=== PATIENT | male | born 1995 | race African-American/Black ===

== ENCOUNTER 2017-01-25 08:02 | Emergency (ER) | payer MEDICAID ==
[~2017-01-25] VITALS: Ht 172.7 cm; Wt 59.0 kg
[2017-01-25 08:02] VITALS: BP_SYST 129
[2017-01-25 08:50] LABS: BASOPHILS % (AUTO) 0.5 % (0.0-2.0); EOSINOPHILS # (AUTO) 0.1 K/uL (0.0-0.4); EOSINOPHILS % (AUTO) 0.7 % (0.0-4.0); HEMATOCRIT 43.7 % (36-54); HEMOGLOBIN 14.4 g/dL (14.0-18.0); LYMPHOCYTES # (AUTO) 1.6 K/uL (1.0-5.5); LYMPHOCYTES % (AUTO) 16.3 % (20.5-51.5); MEAN CORPUSCULAR HEMOGLOBIN 30 pg (27-31); MEAN CORPUSCULAR HGB CONC 33 % (32-36); MEAN CORPUSCULAR VOLUME 91 fL (79.0-98.0); MONOCYTES # (AUTO) 0.9 K/uL (0.0-1.0); MONOCYTES % (AUTO) 9.7 % (1.7-9.3); NEUTROPHILS # (AUTO) 7.1 K/uL (1.8-7.7); NEUTROPHILS % (AUTO) 72.8 % (40.0-70.0); PLATELET COUNT (AUTO) 211 K/uL (130-430); RED BLOOD CELL COUNT(AUTO) 4.82 MIL/uL (4.2-6.2); RED CELL DISTRIBUTION WIDTH 12.1 % (9.0-15.0); WHITE BLOOD COUNT (AUTO) 9.7 K/uL (4.5-11.0)
[2017-01-25 08:52] LABS: BILIRUBIN,URINE NEGATIVE (NEGATIVE); BLOOD, URINE 2+ (NEGATIVE); CLARITY/URINE SL CLOUDY (CLEAR); COLOR,URINE YELLOW (YELLOW); GLUCOSE,URINE NEGATIVE (NEGATIVE); KETONES,URINE NEGATIVE (NEGATIVE); LEUKOCYTE ESTERASE ,URINE NEGATIVE (NEGATIVE); NITRITE, URINE NEGATIVE (NEGATIVE); PH,URINE 8.5 (5.0-8.0); PROTEIN URINE 2+ (NEGATIVE)
[2017-01-25 08:55] LABS: CREATININE 1.29 mg/dL (0.55-1.30)
[2017-01-25 08:58] LABS: INR 0.9 (0.80-1.20)
[2017-01-25 08:59] LABS: BACTERIA,URINE MODERATE /HPF (None Seen); WBC,URINE 0-3 /HPF (0-3)
[2017-01-25 09:00] LABS: URINE AMORPHOUS PHOSPHATES 2+ /HPF (None Seen)
[2017-01-25 09:01] LABS: BARBITURATE, URINE NEGATIVE (NEG <=200); BENZODIAZEPINE, URINE NEGATIVE (NEG <=150); CANNABINOID, URINE POSITIVE (NEG <=50); COCAINE, URINE NEGATIVE (NEG <=150); METHAMPHETAMINES SCREEN,URINE NEGATIVE (NEG <=500); OPIATE, URINE NEGATIVE (NEG <=100); PHENCYCLIDINE SCREEN,URINE NEGATIVE (NEG <=25); UR TRICYCLIC ANTIDEPRESSANTS NEGATIVE (NEG <=300); URINE AMPHETAMINE NEGATIVE (NEG <=500); URINE METHADONE NEGATIVE (NEG <=200); URINE OXYCODONE SCREEN NEGATIVE (NEG <=100); URINE PROPOXYPHENE SCREEN NEGATIVE (NEG <=300)
[2017-01-25 09:02] LABS: TOTAL BILIRUBIN 0.5 mg/dL (0.0-1.0); TOTAL PROTEIN, SERUM 7.7 g/dL (6.4-8.3)
[2017-01-25] MEDS ORDERED: ASPIRIN 325 MG TABLET PO ONE (09:30)
[2017-01-25] MEDS ORDERED: IBUPROFEN 600 MG TABLET PO ONE (09:45)
[2017-01-25 12:24] VITALS: BP_SYST 129
[2017-01-25] MEDS ORDERED: IBUPROFEN 600 MG TABLET PO SCH (15:00)
== END 2017-01-25 12:22 | disposition left against medical advice (07) ==
LOC: SED 08:02 → UNDOADMIN 11:36 → STU 11:36 → UNDODISIN 12:22 → STU 12:22
DX: I31.9 Disease of pericardium, unspecified (principal)
CPT/HCPCS: 36415; 71010; 80053; 80061; 80307; 81000-TC; 83880; 84484; 85025; 85379; 85610-TC; 85730-TC; 87086; 93005; 93306; 99285